=== PATIENT | female | born 1995 | race Caucasian/White ===

== ENCOUNTER 2019-02-04 21:41 | Emergency (ER) | payer BC ==
[~2019-02-04] VITALS: Ht 165.1 cm; Wt 54.4 kg
[2019-02-04 22:02] VITALS: BP 135/78
--- NOTE | 2019-02-04 22:05 | NUR ---
TO LOBBY A/W BED AMBULATORY
--- NOTE | 2019-02-04 22:38 | NUR ---
PT AMBULATED TO BED 12
--- NOTE | 2019-02-04 22:42 | NUR ---
23/F C/O INTERMITTENT, PULSATING LT LOWER PELVIC PAIN X 2 WEEKS. DENIES N/V, DIARRHEA/CONSTIPATION, F/C. VSS; BEDRAILS UP X1; ERMD TO EVALUATE. HX- DENIES
[2019-02-05 00:08] VITALS: BP 135/78
--- NOTE | 2019-02-05 00:08 | NUR ---
Patient discharged with v/s stable. Written and verbal after care instructions given and explained. Patient alert, oriented and verbalized understanding of instructions. Ambulatory with steady gait. All questions addressed prior to discharge. ID band removed. Patient advised to follow up with PMD. Rx of MINERAL OIL given. Patient educated on indication of medication including possible reaction and side effects. Opportunity to ask questions provided and answered.
== END 2019-02-05 00:08 | disposition home or self-care (01) ==
LOC: MED 21:41
DX: R10.30 Lower abdominal pain, unspecified (principal)
CPT/HCPCS: 74018; 81002; 81025; 99283; Q0092

== ENCOUNTER 2019-05-18 03:24 | Emergency (ER) | payer BC ==
[~2019-05-18] VITALS: Ht 165.1 cm; Wt 54.4 kg
[2019-05-18 03:25] VITALS: BP 123/70
--- NOTE | 2019-05-18 03:25 | NUR ---
PT AMBULATED TO BED #11
--- NOTE | 2019-05-18 03:37 | NUR ---
24 Y/O FEMALE C/O CHEST PAIN X BREAST DISCOMFORT X 2 DAYS. RATES PAIN 7/10 AND DESCRIBES IT ACHING AND IS NONRADIATING. HEART SOUNDS S1S2 PRESENT. RADIAL PULSE BILAT +2. CAP REFILL < 3. LUNG SOUNDS CLEAR ALL THROUGHOUT. DENIES ANY FEVER, BODY ACHES, OR COUGH. VSS. NO RESP DISTRESS NOTED. RUNNY NOSE PRESENT. TOOK ADVIL AT 0130 TODAY. A&O X4. STEADY GAIT. DENIES ANY N,V,D. + CHILLS. NKA. NO PMH.
--- NOTE | 2019-05-18 03:43 | NUR ---
CRISTIN NIÑO AT BEDSIDE TO EVAL PT.
--- NOTE | 2019-05-18 04:08 | NUR ---
LAB AT BEDSIDE.
--- NOTE | 2019-05-18 04:12 | NUR ---
MARGARITA EMT AT BEDSIDE PERFORMING EKG.
[2019-05-18 04:29] LABS: CARBON DIOXIDE 27.6 mmol/L (21-32); CREATININE 0.7 mg/dL (0.6-1.3); POTASSIUM 3.6 mmol/L (3.5-5.1)
[2019-05-18 04:42] LABS: WHITE BLOOD COUNT (AUTO) 10.2 K/uL (4.8-10.8)
[2019-05-18 04:48] LABS: RED BLOOD CELL COUNT(AUTO) 4.06 MIL/uL (4.20-5.40)
[2019-05-18 05:08] LABS: BASOPHILS % (AUTO) 0.2 % (0.0-2.0); EOSINOPHILS # (AUTO) 0.1 K/uL (0-0.4); EOSINOPHILS % (AUTO) 0.6 % (0.0-4.0); HEMATOCRIT 37.9 % (36-48); HEMOGLOBIN 12.9 g/dL (12.0-16.0); LYMPHOCYTES # (AUTO) 2.3 K/uL (2.5-16.5); LYMPHOCYTES % (AUTO) 22.9 % (20.5-51.1); MEAN CORPUSCULAR HEMOGLOBIN 32 pg (27-31); MEAN CORPUSCULAR HGB CONC 34 g/dL (33-37); MEAN CORPUSCULAR VOLUME 93.5 fL (80-94); MONOCYTES # (AUTO) 0.4 K/uL (0.8-1.0); MONOCYTES % (AUTO) 4.3 % (1.7-9.3); NEUTROPHILS # (AUTO) 7.3 K/uL (1.8-7.7); PLATELET COUNT (AUTO) 344 K/uL (140-450); RED CELL DISTRIBUTION WIDTH 12.8 % (11.6-13.7)
[2019-05-18 05:22] VITALS: BP 106/67
--- NOTE | 2019-05-18 05:22 | NUR ---
Patient discharged with v/s stable. Written and verbal after care instructions given and explained. Patient verbalized understanding. Ambulatory with steady gait. All questions addressed prior to discharge. Advised to follow up with PMD.
== END 2019-05-18 05:22 | disposition home or self-care (01) ==
LOC: MED 03:24
DX: R07.89 Other chest pain (principal); N64.4 Mastodynia
CPT/HCPCS: 36415; 80048; 81025; 84443; 85025; 93005; 99284

== ENCOUNTER 2020-10-11 18:22 | Emergency (ER) | payer BC, OTHER ==
[~2020-10-11] VITALS: Ht 162.6 cm; Wt 54.4 kg
[2020-10-11 18:44] VITALS: BP 116/64
--- NOTE | 2020-10-11 18:48 | NUR ---
TENT2
--- NOTE | 2020-10-11 18:53 | NUR ---
BIB SELF C/O 08/15 SORE THROAT X 3 WEEKS. COVID TESTED NEGATIVE 09/15/20. PT HAD COVID VACCINE 2 DOSES. PMH: DENIES
[2020-10-11] MEDS ORDERED: LIDO15SO PO (19:05)
[2020-10-11] MEDS ORDERED: ACYC400T14 PO (19:05)
[2020-10-11 19:10] VITALS: BP 116/64
--- NOTE | 2020-10-11 19:10 | NUR ---
Patient discharged with v/s stable. Written and verbal after care instructions given and explained. Patient alert, oriented and verbalized understanding of instructions. Ambulatory with steady gait. All questions addressed prior to discharge. ID band removed. Patient advised to follow up with PMD. Rx of ACYCLOVIR,LIDOCAINE given. Patient educated on indication of medication including possible reaction and side effects. Opportunity to ask questions provided and answered.
== END 2020-10-11 19:10 | disposition home or self-care (01) ==
LOC: MED 18:22
DX: K12.30 Oral mucositis (ulcerative), unspecified (principal); B00.1 Herpesviral vesicular dermatitis
CPT/HCPCS: 99283

== ENCOUNTER 2021-07-01 11:55 | Emergency (ER) | payer OTHER ==
[~2021-07-01] VITALS: Ht 157.5 cm; Wt 59.9 kg
[~2021-07-01 11:55] MED LIST: ACYC400T14 PO; LIDO15SO PO
[2021-07-01 12:02] VITALS: BP 144/82
--- NOTE | 2021-07-01 12:03 | NUR ---
PT AMBULATED TO BED 12 WITH STEADY GAIT
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
[2021-07-01] MEDS ORDERED: IBUPROFEN 600 MG TAB PO ONE (12:30)
--- NOTE | 2021-07-01 12:36 | NUR ---
PT AMBULATED TO BATHROOM WITH STEADY GAIT
[2021-07-01] MEDS ORDERED: CYCL-711 PO (14:00)
[2021-07-01] MEDS ORDERED: IBUP-2213 PO (14:00)
[2021-07-01] MEDS ORDERED: LID5T TP (14:00)
[2021-07-01 14:13] VITALS: BP 112/68
--- NOTE | 2021-07-01 14:13 | NUR ---
Patient discharged with v/s stable. Written and verbal after care instructions ABOUT LOWER BACK PAIN given and explained. Patient alert, oriented and verbalized understanding of instructions. Ambulatory with steady gait. All questions addressed prior to discharge. ID band removed. Patient advised to follow up with PMD. Rx of FLEXERIL, MOTRIN, LIDOERM 5% PATCH given. Patient educated on indication of medication including possible reaction and side effects. Opportunity to ask questions provided and answered.
== END 2021-07-01 14:13 | disposition home or self-care (01) ==
LOC: MED 11:55
DX: S39.012A Strain of muscle, fascia and tendon of lower back, initial encounter (principal); X58.XXXA Exposure to other specified factors, initial encounter; Y93.89 Activity, other specified; Y92.89 Other specified places as the place of occurrence of the external cause; Y99.8 Other external cause status
CPT/HCPCS: 72100; 81002; 81025; 99283

== ENCOUNTER 2021-08-25 02:23 | Emergency (ER) | payer OTHER ==
[~2021-08-25] VITALS: Ht 157.5 cm; Wt 56.2 kg
[~2021-08-25 02:23] MED LIST changes: +CYCL-711 PO; +IBUP-2213 PO; +LID5T TP
[2021-08-25 02:29] VITALS: BP 122/78
--- NOTE | 2021-08-25 03:50 | NUR ---
Patient ambulated to bed 2.
--- NOTE | 2021-08-25 04:02 | NUR ---
Dr. Davis examining patient.
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
[2021-08-25] MEDS ORDERED: ACETAMINOPHEN EXTRA STRENGTH 500 MG TAB PO ONE (04:15)
--- NOTE | 2021-08-25 04:36 | NUR ---
PT TAKEN TO RADIOLOGY
[2021-08-25] MEDS ORDERED: ACET-10509 PO (05:27)
[2021-08-25 05:37] VITALS: BP 115/65
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
== END 2021-08-25 05:37 | disposition home or self-care (01) ==
LOC: MED 02:23
DX: S00.33XA Contusion of nose, initial encounter (principal); Z79.899 Other long term (current) drug therapy; V89.2XXA Person injured in unspecified motor-vehicle accident, traffic, initial encounter; Y93.89 Activity, other specified; Y92.89 Other specified places as the place of occurrence of the external cause; Y99.8 Other external cause status
CPT/HCPCS: 70486; 71045; 81025; 99284